=== PATIENT | female | born 1975 | race American Indian/Alaskan Native ===

== ENCOUNTER 2016-11-05 10:10 | Emergency (ER) | payer OTHER ==
[2016-11-05 11:04] VITALS: BP 115/72
[2016-11-05] MEDS ORDERED: ROCEPHIN IM STA (11:49)
[2016-11-05] MEDS ORDERED: XYLOCAINE 1% MPF 5 mL INFILTRATI ONE (11:49)
== END 2016-11-05 12:15 | disposition home or self-care (01) ==
LOC: ED 10:10
DX: N76.2 Acute vulvitis (principal); N90.9 Noninflammatory disorder of vulva and perineum, unspecified; F17.200 Nicotine dependence, unspecified, uncomplicated
CPT/HCPCS: 96372; 99282; J0696

== ENCOUNTER 2017-04-03 08:11 | Emergency (ER) | payer OTHER ==
[2017-04-03 08:29] VITALS: BP 110/84
== END 2017-04-03 10:20 | disposition left against medical advice (07) ==
LOC: ED 08:11
DX: S61.219A Laceration without foreign body of unspecified finger without damage to nail, initial encounter (principal); Z53.21 Procedure and treatment not carried out due to patient leaving prior to being seen by health care provider